=== PATIENT | male | born 1950 | race Caucasian/White ===

== ENCOUNTER 2017-07-31 09:55 | Emergency (ER) | payer MEDICARE ==
[~2017-07-31] VITALS: Ht 177.8 cm; Wt 127.0 kg
--- NOTE | 2017-07-31 12:11 | Diagnostic Imaging Report ---
PROCEDURE:C-SPINE COMPLETE COMPARISON:None. INDICATIONS:FALL FINDINGS: The cervical spine is visualized in the lateral view from the skull base to C6. There are no acute displaced fractures, lytic or blastic lesions. Degenerative changes predominantly at C5-C6 with moderate intervertebral disc space narrowing and osteophyte formation. There is minimal grade 1 anterolisthesis of C4 on C5. The vertebral body heights are well-maintained. The C1/C2-odontoid interval is normal. Bilateral oblique views show mild narrowing of the left C3-C4 foramen. The pre-vertebral soft tissues are normal. CONCLUSION: No acute abnormalities. CT cervical spine is recommended if there is history of trauma and clinical concern for occult fractures. Degenerative changes predominantly at C5-C6. Genaro Alvares M.D. Dictated by: Genaro Alvares M.D. on 07/31/2017 at 12:20 Electronically approved by: Genaro Alvares M.D. on 07/31/2017 at 12:20
--- NOTE | 2017-07-31 12:12 | Diagnostic Imaging Report ---
PROCEDURE:X-RAY THORACIC SPINE, LIMITED COMPARISON:None. INDICATIONS:FALL FINDINGS: Normal mineralization. No acute displaced fracture or dislocation. Normal alignment. Vertebral body heights are preserved. No lytic or blastic lesions. Minimal degenerative disc changes in the thoracic spine. The paravertebral soft tissues are unremarkable. CONCLUSION: No acute abnormalities. Genaro Alvares M.D. Dictated by: Genaro Alvares M.D. on 07/31/2017 at 12:21 Electronically approved by: Genaro Alvares M.D. on 07/31/2017 at 12:21
== END 2017-07-31 13:46 | disposition home or self-care (01) ==
LOC: ER 09:55
DX: M54.2 Cervicalgia (principal); M54.6 Pain in thoracic spine; S16.1XXA Strain of muscle, fascia and tendon at neck level, initial encounter; W07.XXXA Fall from chair, initial encounter; Y92.230 Patient room in hospital as the place of occurrence of the external cause; E11.9 Type 2 diabetes mellitus without complications; E78.5 Hyperlipidemia, unspecified; K76.9 Liver disease, unspecified
CPT/HCPCS: 72050; 72070; 99283

== ENCOUNTER → 2019-02-12 | Outpatient (CLI) | payer MEDICARE ==
--- NOTE | 2019-02-12 10:24 | Diagnostic Imaging Report ---
Exam: [id number] - 2 views Clinical History: UTI, hematuria. Comparison: None. Findings: Bowel gas partially obscures visualization of the left kidney. Nonobstructive bowel gas pattern. No evidence of abnormal calcification. No acute bony abnormality. Degenerative disc changes in the lumbar spine. Impression: No radiographic evidence of nephrolithiasis. Signed by: Dr. Chuck Castelan MD on 02/12/2019 10:20 AM
--- NOTE | 2019-02-12 11:32 | Diagnostic Imaging Report ---
EXAM: Renal and bladder ultrasound INDICATION: UTI, gross hematuria. COMPARISON: None TECHNIQUE: Transverse and longitudinal images of the kidneys and bladder were obtained. FINDINGS: Right Kidney: Length: Measures 12.3 x 4.4 x 4.5 cm Appearance: Normal echogenicity. Collecting system: No hydronephrosis Stones: None Cyst/Mass: None Left Kidney: Length: Measures 12.0 x 6.2 x 5.6 cm Appearance: Normal echogenicity. Collecting system: No hydronephrosis Stones: None Cyst/Mass: None Bladder: Partially decompressed. The prevoid volume is 20.5 cc. Bilateral ureteral jets are present. IMPRESSION: Unremarkable renal ultrasound. Signed by: Dr. Chuck Castelan MD on 02/12/2019 11:29 AM
== END ==
LOC: US 09:35
PROVIDERS: ATTEND Urology
DX: N39.0 Urinary tract infection, site not specified (principal); R31.0 Gross hematuria
CPT/HCPCS: 74018; 76770; 76857